=== PATIENT | female | born 1980 | race Hispanic/Latino ===

== ENCOUNTER → 2018-08-14 | Outpatient (REF) | payer OTHER ==
[2018-08-14 19:54] LABS: CHLAMYDIA DNA AMPLIFICATION NEGATIVE (NEGATIVE); GC DNA AMPLIFICATION NEGATIVE (NEGATIVE)
== END ==
LOC: M SFHCLERA 12:52
PROVIDERS: ATTEND Nurse Practitioner Family
DX: N94.10 Unspecified dyspareunia (principal)

== ENCOUNTER → 2019-06-10 | Outpatient (REF) | payer OTHER | LOC: M SFHCLERA 17:49 | PROVIDERS: ATTEND Nurse Practitioner Family | DX: R50.9 Fever, unspecified (principal) ==

== ENCOUNTER → 2019-07-03 | Outpatient (CLI) | payer OTHER ==
--- NOTE | 2019-07-03 17:07 | REP ---
CHEST, TWO VIEWS: Two views of the chest are performed. There are no prior studies. There is linear discoid atelectasis in the right base. No infiltrate is seen. Heart is normal in size and mediastinal silhouette is unremarkable. Visualized osseous structures are unremarkable. IMPRESSION: Discoid atelectasis right lung base. No infiltrate seen. Electronically Signed by Gilberto Young MD 07/04/2019 09:57 A
== END ==
LOC: M LRY 16:28
PROVIDERS: ATTEND Physician Assistant
DX: J98.11 Atelectasis (principal)
CPT/HCPCS: 71046; G0463